=== PATIENT | female | born 1980 | race Caucasian/White ===

== ENCOUNTER 2016-12-31 13:21 | Inpatient (IN) | payer BC ==
[2016-12-31] MEDS ORDERED: OXYTOCIN 10 UNIT/ML 1 ML VIAL IM PRN ×2 (14:48→16:59)
[2016-12-31] MEDS ORDERED: METHYLERGONOVINE 0.2 MG/ML 1 ML AMP IM PRN (14:48)
[2016-12-31] MEDS ORDERED: TERBUTALINE 1 MG/ML VIAL SQ PRN ×2 (14:48→16:59)
[2016-12-31] MEDS ORDERED: CARBOPROST TROMETHAMINE 250 MCG/ML 1 ML AMP IM PRN (14:48)
[2016-12-31] MEDS ORDERED: LIDOCAINE 1% (PF) 10 MG/ML (30 ML SDV) SQ PRN ×2 (14:48→16:59)
[2016-12-31] MEDS ORDERED: LACTATED RINGERS 1,000 ML IV SCH (15:00)
[2016-12-31 15:04] LABS: Appearance,Urine Clear (Clear); Bilirubin,Urine Negative (Negative); Glucose,Urine (UA) Negative (Negative); Ketones,Urine Negative (Negative); Leukocyte Esterase,Urine Negative (Negative); Nitrite,Urine Negative (Negative); Protein,Urine Negative (Negative); Specific Gravity,Urine 1.008 (1.001-1.035); UA Billing (MACRO vs. MICRO) CHEM; Urobilinogen,Urine <2.0 mg/dL (<2.0)
[2016-12-31 15:29] LABS: Basophils % (A) 0 %; CH 33.6; CHCM 34.5; Eosinophils # (A) 0.1 k/uL (0-0.7); Eosinophils % (A) 0 %; HCT 37.7 % (34.0-46.0); HDW 2.41; HGB 12.6 gm/dL (11.4-16.0); Luc # (Auto) 0.19; Luc % (Auto) 1; Lymphocytes % (A) 12 %; MCH 32.6 pg (25.0-35.0); MCHC 33.3 g/dL (31.0-37.0); Mean Platelet Volume 7.8; Monocytes # (A) 0.8 k/uL (0-1.0); Monocytes % (A) 5 %; Neutrophils # (A) 13.9 k/uL (1.3-7.7); Neutrophils % (A) 82 %; RBC 3.85 m/uL (3.80-5.40); RDW 15.2 % (11.5-15.5); WBC (Perox) 17.72
[2016-12-31 15:57] LABS: Uric Acid 5.3 mg/dL (3.7-7.4)
--- NOTE | 2016-12-31 16:56 | US ---
EXAMINATION TYPE: US OB >= 14 wk fetus DATE OF EXAM: 12/31/2016 COMPARISON: EXAMINATION TYPE: US OB >= 14 wk fetus DATE OF EXAM: 12/31/2016 COMPARISON: None CLINICAL HISTORY: EFW, LORIE and position, patient thinks her water broke earlier. TECHNIQUE: Transabdominal (TA) GESTATIONAL AGE / DATING Physician Established: (40 weeks/4 days) EDC: 12/27/2016 Dates by LMP: unknown Dates by First Scan: first scan done here Dates by Current Scan: (37 weeks/4 days) EDC: 01/17/2017 SURVEY IUP: Single PLACENTA: Fundal PREVIA: No Previa LORIE: 5.4 cm Oligohydramnios, pt thinks her water broke earlier today CERVICAL LENGTH (transabdominal: norm > 3.0cm): 3.2 cm BIOMETRY PRESENTATION: Vertex LIE: Longitudinal BPD: 9.4 cm 38 weeks / 2 days HC: 33.9 cm 37 weeks / 3 days AC: 33.6 cm 37 weeks / 3 days FL: 7.3 cm 37 weeks / 3 days ESTIMATED WEIGHT IN GRAMS: 3294 grams ESTIMATED WEIGHT IN LBS/OZS: 7 lbs. 4 oz. WEIGHT PERCENTAGE BASED ON ESTABLISHED DATES: 18.5% HC/AC: not available FL/AC: 21.8 20.0-24.0 HEART RATE: 137 bpm RHYTHM: Normal MATERNAL WALL MEASUREMENT: 4.1 cm from skin to anterior uterine wall (if exam limited due to body hab itus). Heart rate is 137 bpm. IMPRESSION: Cervical length is 3.2 cm. measurements vary in gestational age between 37 weeks 3 days and 38 weeks and 2 days.
--- NOTE | 2016-12-31 16:59 | P.HPOB ---
History of Present Illness H&P Date: 12/31/16 Chief Complaint: Rupture of membranes, contractions Cassidy is a very pleasant 36-year-old 1 para 0 at 8-4/7 days with estimated due date of 12/27/2016. She states she had a large gush of fluid around 9:30 AM today and then continued to fill minipads thereafter. She started maldonado and then presented to OB triage. She denies vaginal bleeding and notes good movement blood work revealed a blood type of AB+ she was rubella immune her RPR was nonreactive her hepatitis B surface antigen was negative her HIV was negative. She is a known gestational diabetic and has been well controlled. Review of Systems Respiratory: Denies cough Gastrointestinal: Denies constipation, Denies diarrhea Past Medical History Additional Past Medical History / Comment(s): Gestational Diabetes 10/04 History of Any Multi-Drug Resistant Organisms: None Reported Past Surgical History: Cholecystectomy, Tonsillectomy Additional Past Anesthesia/Blood Transfusion Reaction / Comment(s): tongue swelled with tonsilectomy requiring steroids Smoking Status: Never smoker Medications and Allergies Home Medications Medication Instructions Recorded Confirmed Type 78/Iron/Folate 1/Dha 1 each PO DAILY 12/31/16 12/31/16 History [Prenate Dha Softgel] valACYclovir [Valtrex] 500 mg PO DAILY 12/31/16 12/31/16 History Allergies Allergy/AdvReac Type Severity Reaction Status Date / Time Sulfa (Sulfonamide Allergy Rash/Hives Verified 12/31/16 14:10 Antibiotics) Exam Osteopathic Statement: *. No significant issues noted on an osteopathic structural exam other than those noted in the History and Physical/Consult. - Vital Signs Vital signs: Intake and Output 12/31/16 12/31/16 12/31/16 06:59 14:59 22:59 Other: Weight 117.934 kg Patient Weight 01/01/17 06:59 Weight 117.934 kg - OBG Physical Exam Abdomen: Gravid Cervix: 2-3 cm/ 50/-3, amnisure was indeterminate for ROM on admission per RN Uterus: Appropriate for gestational age Uterus: enlarged Results Result Diagrams: 12/31/16 15:15 Abnormal Lab Results - Last 24 Hours (Table) 12/31/16 12/31/16 Range/Units 15:15 15:15 WBC 17.0 H (3.8-10.6) k/uL Neutrophils # 13.9 H (1.3-7.7) k/uL Lactate Dehydrogenase 746 H (313-618) U/L Assessment and Plan (1) SROM (spontaneous rupture of membranes) Status: Acute (2) Gestational HTN Narrative/Plan: PIH labs were drawn all negative in nature, negative urine protein on UA. We will monitor blood pressures closely Status: Acute (3) HSV (herpes simplex virus) anogenital infection Narrative/Plan: Will continue Valtrex Status: Acute (4) AMA (advanced maternal age) primigravida 35+ Status: Acute (5) GDM, class A1 Status: Acute Plan: We'll admit to labor and delivery for expectant management. Blood pressures were initially elevated but have come down to more normal range, 130s to 140s over 80s. She is without complaints of headache visual changes or abdominal pain at this time. PIH labs were completed all normal in nature with negative protein in her urine. We will watch blood pressures closely. Patient is noting an increase in contractions and anticipate spontaneous vaginal delivery.
[2016-12-31 19:46] VITALS: BMI 37.3
[2016-12-31] MEDS: LACTATED RINGERS 1,000 ML IV SCH (20:39)
[2016-12-31 20:41] LABS: Non-African American GFR(MDRD) >60 (>60 ml/min/1.73 sqM)
[2016-12-31 20:44] LABS: Glucose,Whole Blood 73 mg/dL (75-99)
[2016-12-31 22:16] LABS: Basophils % (A) 0 %; CH 32.6; CHCM 33.8; Eosinophils # (A) 0.1 k/uL (0-0.7); Eosinophils % (A) 1 %; HCT 37.6 % (34.0-46.0); HDW 2.39; HGB 12.8 gm/dL (11.4-16.0); Luc # (Auto) 0.19; Luc % (Auto) 1; Lymphocytes % (A) 13 %; MCH 33.1 pg (25.0-35.0); MCHC 34.1 g/dL (31.0-37.0); Mean Platelet Volume 7.2; Monocytes # (A) 0.6 k/uL (0-1.0); Monocytes % (A) 4 %; Neutrophils # (A) 13.1 k/uL (1.3-7.7); Neutrophils % (A) 82 %; RBC 3.87 m/uL (3.80-5.40); RDW 14.4 % (11.5-15.5); WBC (Perox) 16.49
[2016-12-31 22:36] LABS: ALT 31 U/L (9-52); AST 23 U/L (14-36); Blood Urea Nitrogen 12 mg/dL (7-17); LDH 609 U/L (313-618); Magnesium 1.6 mg/dL (1.6-2.3); Non-African American GFR(MDRD) >60 (>60 ml/min/1.73 sqM)
[2016-12-31 22:50] LABS: Prothrombin Time 9.8 sec (9.0-12.0)
[2016-12-31 22:51] LABS: Partial Thromboplastin Time 21.6 sec (22.0-30.0)
[2017-01-01] MEDS: BUTORPHANOL 1 MG/ML 1 ML VIAL IV PRN ×2 (00:59→04:41)
[2017-01-01] MEDS: LACTATED RINGERS 1,000 ML IV SCH ×5 (01:04→18:15)
[2017-01-01] MEDS ORDERED: OXYTOCIN 20 UNITS/1000 ML NS 1,000 ML IV SCH (05:00)
[2017-01-01] MEDS ORDERED: AMPICILLIN 2,000 MG in SODIUM CHLORIDE 0.9% 100 ML IVPB STA (05:37)
[2017-01-01] MEDS ORDERED: SODIUM CHLORIDE 0.9% 100 ML BAG ONE ×2 (08:28→14:17)
[2017-01-01] MEDS ORDERED: fentaNYL (PF) 50 MCG/ML 5 ML AMP ONE ×2 (08:28→14:17)
[2017-01-01] MEDS ORDERED: BUPIVACAINE (PF) 0.25% 30 ML VIAL ONE ×2 (08:28→14:17)
[2017-01-01] MEDS ORDERED: BUPIVACAINE (PF) 0.25% 25 ML, fentaNYL (PF) 200 MCG in SODIUM CHLORIDE 0.9% 71 ML EPIDURAL ONE (09:10)
[2017-01-01] MEDS: AMPICILLIN 1,000 MG in SODIUM CHLORIDE 0.9% 50 ML IVPB SCH ×2 (10:12→18:06)
[2017-01-01] MEDS ORDERED: hydrALAZINE HCL 20 MG/ML 1 ML VIAL IVP STA ×3 (11:05→12:45)
[2017-01-01 11:56] LABS: Hemoglobin A1C 5.6 % (4.2-6.1)
[2017-01-01] MEDS ORDERED: ceFAZolin 2 GM in SODIUM CHLORIDE 0.9% 100 ML IVPB ONE (14:02)
[2017-01-01] MEDS ORDERED: CITRIC ACID-SODIUM CITRATE 15 ML CUP PO ONE (14:02)
[2017-01-01] MEDS ORDERED: ONDANSETRON 4 MG/2 ML VIAL ONE (14:17)
[2017-01-01] MEDS ORDERED: OXYTOCIN 10 UNIT/ML 1 ML VIAL ONE (14:17)
[2017-01-01] MEDS ORDERED: KETOROLAC 30 MG/ML 1 ML VIAL ONE (14:17)
[2017-01-01] MEDS ORDERED: diphenhydrAMINE 50 MG CAP PO PRN (15:23)
[2017-01-01] MEDS ORDERED: HYDROmorphone PCA 5 MG/25 ML SYRINGE IV PRN (15:23)
[2017-01-01] MEDS ORDERED: ONDANSETRON 4 MG/2 ML VIAL IVP PRN (15:23)
[2017-01-01] MEDS ORDERED: diphenhydrAMINE 50 MG/ML 1 ML VIAL IVP PRN ×2 (15:23)
[2017-01-01] MEDS ORDERED: METOCLOPRAMIDE 5 MG/ML 2 ML VIAL IVP PRN (15:23)
[2017-01-01] MEDS ORDERED: ZOLPIDEM 5 MG TAB PO PRN (15:23)
[2017-01-01] MEDS ORDERED: NALOXONE 0.4 MG/ML 1 ML VIAL IV PRN (15:23)
[2017-01-01] MEDS ORDERED: diphenhydrAMINE 25 MG CAP PO PRN (15:23)
--- NOTE | 2017-01-01 15:23 | P.OP ---
Date of Procedure: 01/01/17 Preoperative Diagnosis: Arrest of descent at 40-4/7 weeks' gestation, gestational diabetes. Postoperative Diagnosis: Left occiput posterior position, fibroid uterus. Procedure(s) Performed: primary low transverse section Implants: Anesthesia: epidural Surgeon: Janet Marquez Receiver Setter #1: aDnyell Casiano Estimated Blood Loss (ml): 600 IV fluids (ml): 1,000 Urine output (ml): 100 Pathology: other (Placenta) Condition: stable Disposition: PACU Indications for Procedure: Operative Findings: Description of Procedure: After almost 2 hours of pushing in the second stage of labor, no descent was noted. Patient declared that she was done pushing and requested . Station remained at 0 to +1 with a large amount of . heart tones were reassuring. She was brought to the operating room where the epidural that was previously placed was "topped off". Analgesia was noted to be adequate. Irene was placed to direct drainage. 2 g of Ancef were given. The abdomen was prepped and draped in the usual sterile fashion. Analgesia was checked and noted to be very good. Therefore low transverse skin incision was made in this is carried down through the subcutaneous tissue. Fascia is isolated, scored and extended bilaterally with curved Villalba scissors. Peritoneum is next identified and incised, there is no bowel or bladder involvement. The bladder blade was placed over the dome of the bladder to avoid bladder and/or ureteral injury. It is well mobilized from the operative field. A low transverse uterine incision is made in this is carried down through the myometrium. Endometrial cavity is entered, and the incision is extended bluntly. The 's head is very deep into the pelvis. It is gently brought into the operative field and noted to be in the left occiput posterior position. There is a large amount of Noted. The oropharynx, nasopharynx and external nares are bulb suctioned. Patient is officially delivered of a liveborn male infant at 1433 hrs. Umbilical cord is doubly clamped and ligated he should where scores of 8 and 9 at one and 5 minutes respectively are given. Placentas delivered manually, it is inspected and noted to be intact with trivascular cord at 1434 hrs. At this time the uterus is externalized. The incision is grasped with Leach clamps. The uterus is swept clean with a sterile sponge to avoid any retained products of conception. The uterus is closed in a running stitch of 0 Vicryl. A second layer of 0 Vicryl is placed in an imbricated fashion for excellent reapproximation. Bilateral ovaries and tubes are inspected and noted to be normal. There is a subcu mucosal fibroid noted that is approximate 5 cm in diameter. The abdomen is suctioned with suction on guard. The uterus is gently placed back into the abdominal cavity. Bilateral gutters are inspected and cleaned. The uterine incision is noted to be nicely intact and well approximated. The peritoneum was allowed to close by secondary intention. Fascia is closed in a running fashion using 0 Vicryl with over ligation in the midline. Subcutaneous tissue is irrigated, noted to be clean and dry. It is reapproximated with 3-0 Vicryl in a running stitch. 4-0 undyed Vicryl issues for final skin closure. Steri-Strips and Mastisol are applied to the wound. Patient is brought back to the recovery room in very good condition with stable vital signs, including a blood pressure of 134/77, pulse 98, 98% O2 saturation. Estimated blood loss 600 mL's. Infant weighed 7 lbs. 14 oz. or 3586 g. All sponge needle and enhancement counts are correct at the end of procedure. Patient is requesting circumcision for her son.
[2017-01-01] MEDS: SENNOSIDES-DOCUSATE SODIUM 1 EACH TAB PO SCH (20:54)
[2017-01-01] MEDS: KETOROLAC 30 MG/ML 1 ML VIAL IVP PRN (20:57)
[2017-01-02] MEDS: LACTATED RINGERS 1,000 ML IV SCH ×2 (01:26→10:10)
[2017-01-02] MEDS: KETOROLAC 30 MG/ML 1 ML VIAL IVP PRN ×2 (04:18→10:17)
[2017-01-02] MEDS: SENNOSIDES-DOCUSATE SODIUM 1 EACH TAB PO SCH ×2 (08:23→23:33)
--- NOTE | 2017-01-02 08:46 | P.PN ---
Subjective Principal diagnosis: Postoperative day #1 Slept well, passing gas. Hungry. No complaints Objective - Vital Signs Vital signs: Vital Signs Temp 99.4 F 01/02/17 04:00 Pulse 102 H 01/02/17 04:00 Resp 16 01/02/17 04:00 BP 132/79 01/02/17 04:00 Pulse Ox 98 01/02/17 04:00 Intake & Output 01/01/17 01/02/17 01/02/17 18:59 06:59 18:59 Intake Total 1825 Output Total 50 700 Balance -50 1125 Intake: Intake, IV Titration 625 Amount Lactated Ringers 1,000 ml 625 @ 125 mls/hr IV .Q8H ROSALIND Rx#:[id number] Oral 1200 Output: Urine 50 700 Uretheral (Irene) 100 Other: Voiding Method Indwelling Catheter # Voids 1 1 - Constitutional General appearance: Present: average body habitus, cooperative - EENT Eyes: Present: PERRLA ENT: Present: hearing grossly normal - Neck Neck: Present: normal ROM Thyroid: bilateral: normal size - Respiratory Respiratory: bilateral: CTA - Cardiovascular Rhythm: regular - Gastrointestinal Gastrointestinal Comment(s): Incision clean and dry, well approximated, Steri-Strips applied. Fundus firm, midline, symmetric, 18 week size, nontender. - Integumentary Integumentary: Present: normal, normal turgor - Neurologic Neurologic: Present: CNII-XII intact - Musculoskeletal Musculoskeletal: Present: gait normal - Psychiatric Psychiatric: Present: A&O x's 3, appropriate affect, intact judgment & insight - Labs CBC & Chem 7: 12/31/16 22:03 12/31/16 22:03 Assessment and Plan Plan: Continue postoperative care. Circumcision this morning. Likely discharge home tomorrow. Time with Patient: Less than 30
[2017-01-02 09:17] LABS: Basophils % (A) 0 %; CH 33.2; Eosinophils # (A) 0.1 k/uL (0-0.7); Eosinophils % (A) 0 %; HCT 31.1 % (34.0-46.0); HDW 2.42; HGB 10.3 gm/dL (11.4-16.0); Luc # (Auto) 0.16; Luc % (Auto) 1; Lymphocytes # (A) 1.9 k/uL (1.0-4.8); Lymphocytes % (A) 10 %; MCH 32.5 pg (25.0-35.0); MCV 98.5 fL (80.0-100.0); Macrocytosis Slight; Mean Platelet Volume 7.5; Monocytes # (A) 0.6 k/uL (0-1.0); Monocytes % (A) 3 %; Neutrophils # (A) 16.1 k/uL (1.3-7.7); Neutrophils % (A) 85 %; RBC 3.16 m/uL (3.80-5.40); RDW 15.2 % (11.5-15.5); WBC 18.8 k/uL (3.8-10.6); WBC (Perox) 18.76
[2017-01-02] MEDS ORDERED: DIPH,PERTUS(ACELL)TETVAC-LF 0.5 ML VIAL IM ONE (10:05)
[2017-01-02] MEDS: ACETAMINOPHEN TAB 325 MG TAB PO PRN (14:36)
[2017-01-02] MEDS: IBUPROFEN 600 MG TAB PO PRN ×2 (18:02→23:32)
[2017-01-03] MEDS: IBUPROFEN 600 MG TAB PO PRN ×2 (07:56→14:54)
--- NOTE | 2017-01-03 08:00 | P.DS ---
Providers Date of admission: 12/31/16 14:34 Expected date of discharge: 01/03/17 Attending physician: Janet [facility] Course: This is a 26-year-old white female 1 para 0 EDC 12/27/2016 at 40-5/7 weeks' gestation. Patient was admitted in early labor. Her was essentially unremarkable, group B strep cultures negative, rubella status immune. Please see my dictated history and physical for details. Patient ultimately underwent a low-transverse section for arrest of dilatation and descent. She did well intraoperatively, and gave to a liveborn male with scores of 8 and 9 at one and 5 minutes respectively. Infant weighed 7 lbs. 14 oz. or 3586 g. He was in the occiput posterior position, please see my dictated operative note for details. This morning the patient is doing well. She is voiding, ambulating and passing flatus without difficulty. Vital signs are stable and she is afebrile. Incision is clean and dry, intact, Steri-Strips applied. Fundus is firm, midline, symmetric, 18 week size. Extremities are negative for edema. Breasts are not engorged. Breast-feeding is going well. infant has been circumcised and is doing well. Patient is being discharged home today in very good condition. She is reminded no intercourse, tampons or douching. She has elected to use [id number] products as needed for pain, ibuprofen, 200 mg pills, 600 mg every 6 hours as needed. I have asked her to call me with any fevers shakes or chills, foul smelling or copious lochia, with the passage of large blood clots, with any pain not alleviated by [id number] products, or indeed with any concerns. She is reminded no driving, no heavy lifting, no intercourse tampons or douching. She will continue taking her vitamin daily. [place] infant will follow-up with site administrator as recommended. Patient Condition at Discharge: Good Plan - Discharge Summary New Discharge Prescriptions: No Action valACYclovir [Valtrex] 500 mg PO DAILY 78/Iron/Folate 1/Dha [Prenate Dha Softgel] 1 each PO DAILY Discharge Medication List 78/Iron/Folate 1/Dha [Prenate Dha Softgel] 1 each PO DAILY 12/31/16 [ History] valACYclovir [Valtrex] 500 mg PO DAILY 12/31/16 [History] Follow up Appointment(s)/Referral(s): Janet Marquez MD [STAFF PHYSICIAN] - 2 Weeks Discharge Disposition: HOME SELF-CARE
[2017-01-03 08:17] VITALS: BP 139/80; PULSE 110; RESP 18; TEMP 97.7
[2017-01-03] MEDS: SENNOSIDES-DOCUSATE SODIUM 1 EACH TAB PO SCH (08:17)
[2017-01-03] MEDS: ACETAMINOPHEN TAB 325 MG TAB PO PRN (12:15)
== END 2017-01-03 18:00 | disposition home or self-care (01) | DRG 766 ==
LOC: FBPOP 13:21 → 4FBP 14:34
PROVIDERS: ADMIT Obstetrics & Gynecology Obstetrics; ATTEND Obstetrics & Gynecology
PROC: 10D00Z1 Extraction of Products of Conception, Low, Open Approach (ICD-10-PCS; principal; 2017-01-01 14:25)
PROC: 3E0234Z Introduction of Serum, Toxoid and Vaccine into Muscle, Percutaneous Approach (ICD-10-PCS; 2017-01-02)
DX: O13.4 Gestational [pregnancy-induced] hypertension without significant proteinuria, complicating childbirth (principal); O24.420 Gestational diabetes mellitus in childbirth, diet controlled; A60.00 Herpesviral infection of urogenital system, unspecified; O98.319 Other infections with a predominantly sexual mode of transmission complicating pregnancy, unspecified trimester; O34.13 Maternal care for benign tumor of corpus uteri, third trimester; O62.1 Secondary uterine inertia; Z37.0 Single live birth; Z23 Encounter for immunization; Z3A.40 40 weeks gestation of pregnancy; Z90.49 Acquired absence of other specified parts of digestive tract; D25.9 Leiomyoma of uterus, unspecified; Z79.899 Other long term (current) drug therapy; Z88.2 Allergy status to sulfonamides
CPT/HCPCS: 59025; 76805; 81003; 82565; 83036; 83615; 83735; 84112; 84450; 84460; 84520; 84550; 85025; 85384; 85610; 85730; 86850; 86900; 86901; 88307; 99213

== ENCOUNTER 2017-01-07 20:41 | Emergency (ER) | payer BC ==
[2017-01-07 20:46] VITALS: BP 184/72; PULSE 117; RESP 20; TEMP 98.5
--- NOTE | 2017-01-07 21:51 | ED ---
General Adult HPI - General Chief complaint: Recheck/Abnormal Lab/Rx Stated complaint: bleeding from site Time Seen by Provider: 01/07/17 21:05 Source: patient, family, RN notes reviewed Mode of arrival: ambulatory Limitations: no limitations - History of Present Illness Initial comments: 36 yo female presents emergency department with a chief complaint of draining from her surgical incision site. Patient states she had a done on Sunday by Dr. Marquez. Patient states that all of a sudden she felt a gush and she had drainage from her incision site. Patient denies any pain. Patient denies any fever or any purulent drainage she states it is clear drainage and some blood. They were concerned so they thought they should be seen.Patient denies any recent fever, chills, shortness of breath, chest pain, back pain, abdominal pain, nausea vomiting, numbness or tingling, dysuria or hematuria, constipation or diarrhea, headaches or visual changes, or any other current symptoms. - Related Data Home Medications Medication Instructions Recorded Confirmed 78/Iron/Folate 1/Dha 1 cap PO HS 12/31/16 01/07/17 [Prenate Dha Softgel] Ibuprofen [Motrin] 200 - 600 mg PO Q6HR PRN 01/07/17 01/07/17 Allergies Allergy/AdvReac Type Severity Reaction Status Date / Time Sulfa (Sulfonamide Allergy Rash/Hives Verified 01/07/17 21:05 Antibiotics) Review of Systems ROS Statement: Those systems with pertinent positive or pertinent negative responses have been documented in the HPI. ROS Other: All systems not noted in ROS Statement are negative. Past Medical History Additional Past Medical History / Comment(s): Gestational Diabetes 10/04 History of Any Multi-Drug Resistant Organisms: None Reported Past Surgical History: Section, Cholecystectomy, Tonsillectomy Additional Past Anesthesia/Blood Transfusion Reaction / Comment(s): tongue swelled with tonsilectomy requiring steroids Past Psychological History: No Psychological Hx Reported Smoking Status: Never smoker Past Alcohol Use History: None Reported Past Drug Use History: None Reported - Past Family History Father Family Medical History: Cancer, Hypertension General Exam Limitations: no limitations General appearance: alert, in no apparent distress Neck exam: Present: normal inspection. Absent: tenderness, meningismus, lymphadenopathy Respiratory exam: Present: normal lung sounds bilaterally. Absent: respiratory distress, wheezes, rales, rhonchi, stridor Cardiovascular Exam: Present: regular rate, normal rhythm, normal heart sounds. Absent: systolic murmur, diastolic murmur, rubs, gallop, clicks GI/Abdominal exam: Present: soft, normal bowel sounds. Absent: distended, tenderness, guarding, rebound, rigid Neurological exam: Present: alert, oriented X3 Skin exam: Present: warm, dry. Absent: intact (Patient appears to have a healing incision site. There does appear to be some drainage non- purulent clear with some blood tinging. No sign of erythema surrounding the area. Is able to elicit more fluid from the area.) Course Vital Signs 01/07/17 20:42 Temperature 98.5 F Pulse Rate 117 H Respiratory 20 Rate Blood Pressure 184/72 O2 Sat by Pulse 100 Oximetry Medical Decision Making - Medical Decision Making 36-year-old female presents emergency Department what appears to be a seroma. This time we discussed care of this. We discussed follow-up. We discussed return parameters and all questions. Patient stated that she understood and she is in agreement the plan. At this time the patient questions have been answered. She will be discharged home. Disposition Clinical Impression: Seroma Disposition: HOME SELF-CARE Condition: Stable Instructions: Wound Healing and Your Diet (ED), Acute Wound Care (ED) Additional Instructions: Please use medication as discussed. Please follow up with family doctor if symptoms have not improved over the next two days. Please return to the emergency room if your symptoms increase or worsen or for any other concerns. Referrals: Evelin Baires MD [Primary Care Provider] - 1-2 days Time of Disposition: 21:50
== END 2017-01-07 22:03 | disposition home or self-care (01) ==
LOC: EC 20:41
DX: L76.34 Postprocedural seroma of skin and subcutaneous tissue following other procedure (principal); L76.22 Postprocedural hemorrhage of skin and subcutaneous tissue following other procedure; Z79.899 Other long term (current) drug therapy; Z88.2 Allergy status to sulfonamides
CPT/HCPCS: 87070; 87077; 87186; 87205; 99283

== ENCOUNTER 2018-05-26 09:17 | Emergency (ER) | payer BC ==
[2018-05-26] MEDS ORDERED: IPRATROPIUM-ALBUTEROL 3 ML NEB INHALATION STA (09:33)
--- NOTE | 2018-05-26 09:43 | ED ---
URI HPI - General Chief Complaint: Upper Respiratory Infection Stated Complaint: cough Time Seen by Provider: 05/26/18 09:23 Source: patient, RN notes reviewed Mode of arrival: ambulatory Limitations: no limitations - History of Present Illness Initial Comments: 37-year-old female presents emergency Department from [facility] chief complaint cough congestion. Patient states she has been sick for one month. Patient states that she has been on doxycycline, another antibiotic. Patient states she had 2 short course of steroids. Patient states that they were Medrol Dosepak. Patient states that she has no significant lung disease including asthma, COPD. Patient is a nonsmoker. 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 Patient denies any chest pain. Patient has never been seen by a salesperson flowers. She states her cough is productive of phlegm at times. Patient denies ear pain, sore throat, headache or dizziness. Patient does notice wheezing at home worse with activity - Related Data Home Medications Medication Instructions Recorded Confirmed 78/Iron/Folate 1/Dha 1 cap PO HS 12/31/16 05/26/18 [Prenate Dha Softgel] Norethindrone [Nadira] 0.35 mg PO W/SUPPER 05/26/18 05/26/18 Previous Rx's Medication Instructions Recorded Albuterol Nebulized [Ventolin 2.5 mg INHALATION Q4H PRN #25 nebu 05/26/18 Nebulized] Budesonide/Formoterol Fumarate 1 puff INHALATION BID #1 inhaler 05/26/18 [Symbicort 80-4.5 Mcg Inhaler] predniSONE 10 mg PO DIRECTED #30 tab 05/26/18 Allergies Allergy/AdvReac Type Severity Reaction Status Date / Time Sulfa (Sulfonamide Allergy Rash/Hives Verified 05/26/18 09:49 Antibiotics) Review of Systems ROS Statement: Those systems with pertinent positive or pertinent negative responses have been documented in the HPI. ROS Other: All systems not noted in ROS Statement are negative. Past Medical History Additional Past Medical History / Comment(s): Gestational Diabetes 10/04 History of Any Multi-Drug Resistant Organisms: None Reported Past Surgical History: Section, Cholecystectomy, Tonsillectomy Additional Past Anesthesia/Blood Transfusion Reaction / Comment(s): tongue swelled with tonsilectomy requiring steroids Past Psychological History: No Psychological Hx Reported Smoking Status: Never smoker Past Alcohol Use History: None Reported Past Drug Use History: None Reported - Past Family History Father Family Medical History: Cancer, Hypertension General Exam Limitations: no limitations General appearance: alert, in no apparent distress Head exam: Present: atraumatic, normocephalic, normal inspection Eye exam: Present: normal appearance, PERRL, EOMI. Absent: scleral icterus, conjunctival injection, periorbital swelling ENT exam: Present: normal exam, normal oropharynx, mucous membranes moist, TM's normal bilaterally, normal external ear exam Neck exam: Present: normal inspection, full ROM. Absent: tenderness, meningismus, lymphadenopathy Respiratory exam: Present: wheezes (Bilateral throughout, audible wheeze). Absent: normal lung sounds bilaterally, respiratory distress, rales, rhonchi, stridor Cardiovascular Exam: Present: normal rhythm, tachycardia, normal heart sounds. Absent: systolic murmur, diastolic murmur, rubs, gallop, clicks Skin exam: Present: warm, dry, intact, normal color. Absent: rash Course Vital Signs 05/26/18 05/26/18 05/26/18 09:19 09:45 10:05 Temperature 98.8 F Pulse Rate 112 H 108 H 112 H Respiratory 20 Rate Blood Pressure 141/89 O2 Sat by Pulse 100 Oximetry Medical Decision Making - Medical Decision Making 37-year-old female presented from for cough congestion which has been present for 1 month. Chest x-ray is unremarkable. Patient has notable wheezing, bronchospasm. Patient does respond with DuoNeb treatment. Patient will be given steroid taper over 12 days, continuation of inhaler and inhaled steroid. Patient will also given prescription and for nebulizer and albuterol. Patient will follow-up with Dr. Stanford on-call salesperson flowers and return for any worsening symptoms. Disposition Clinical Impression: Bronchitis with bronchospasm, Chronic cough Disposition: HOME SELF-CARE Condition: Stable Instructions: Bronchospasm (ED) Additional Instructions: Please return to the Emergency Department if symptoms worsen or any other concerns. Prescriptions: Albuterol Nebulized [Ventolin Nebulized] 2.5 mg INHALATION Q4H PRN #25 nebu PRN Reason: difficulty in breathing Budesonide/Formoterol Fumarate [Symbicort 80-4.5 Mcg Inhaler] 1 puff INHALATION BID #1 inhaler predniSONE 10 mg PO DIRECTED #30 tab Is patient prescribed a controlled substance at d/c from ED?: No Referrals: Evelin Baires MD [Primary Care Provider] - 1-2 days Boy Canales MD [STAFF PHYSICIAN] - 1-2 days Time of Disposition: 11:26
--- NOTE | 2018-05-26 09:46 | XR ---
EXAMINATION TYPE: XR chest 2V DATE OF EXAM ORDERED: 05/26/2018 HISTORY: Cough/pain. REFERENCE: None. FINDINGS: The lungs are clear. Pleural spaces are clear. Heart size is normal. IMPRESSION: NORMAL CHEST.
[2018-05-26 15:23] VITALS: BP 122/89; PULSE 102; RESP 18; TEMP 98.2
== END 2018-05-26 11:42 | disposition home or self-care (01) ==
LOC: EC 09:17
DX: J40 Bronchitis, not specified as acute or chronic (principal); J98.01 Acute bronchospasm; R05 Cough; Z79.3 Long term (current) use of hormonal contraceptives
CPT/HCPCS: 71046; 94640; 99283

== ENCOUNTER → 2018-12-05 | Outpatient (CLI) | payer BC ==
--- NOTE | 2018-12-05 13:48 | MM ---
Reason for exam: screening (asymptomatic). Baseline mammogram. History: Patient had first child at age 36. Family history of breast cancer in mother at age 47 and breast cancer in maternal grandmother at age 60. Taking hormonal contraceptives for 6 months beginning at age 38. Physical Findings: Nurse did not find any significant physical abnormalities on exam. MG 3D Screening Mammo W/Cad Bilateral CC and MLO view(s) were taken. The breast tissue is heterogeneously dense. This may lower the sensitivity of mammography. There is no discrete abnormality. These results were verbally communicated with the patient and result sheet given to the patient on 12/05/18. ASSESSMENT: Negative, BI-RAD 1 RECOMMENDATION: Routine screening mammogram of both breasts in 1 year.
== END | disposition home or self-care (01) ==
LOC: RADMAMWWP 12:45
PROVIDERS: ATTEND Obstetrics & Gynecology
DX: Z12.31 Encounter for screening mammogram for malignant neoplasm of breast (principal); Z80.3 Family history of malignant neoplasm of breast
CPT/HCPCS: 77063; 77067

== ENCOUNTER → 2020-01-09 | Outpatient (CLI) | payer BC ==
--- NOTE | 2020-01-13 08:14 | MM ---
Reason for exam: screening (asymptomatic). Last mammogram was performed 1 year and 1 month ago. History: Patient had first child at age 36. Family history of breast cancer in mother at age 47 and breast cancer in maternal grandmother at age 60. Taking hormonal contraceptives for 6 months beginning at age 38. Physical Findings: A clinical breast exam by your physician is recommended on an annual basis and results should be correlated with mammographic findings. MG 3D Screening Mammo W/Cad Bilateral CC and MLO view(s) were taken. Prior study comparison: December 05, 2018, bilateral MG 3d screening mammo w/cad. The breast tissue is heterogeneously dense. This may lower the sensitivity of mammography. Left MLO posterior asymmetric density centrally disperses on 3D images. No significant changes when compared with prior studies. ASSESSMENT: Benign, BI-RAD 2 RECOMMENDATION: Routine screening mammogram of both breasts in 1 year.
== END | disposition home or self-care (01) ==
LOC: RADMAMWWP 11:46
PROVIDERS: ATTEND Obstetrics & Gynecology
DX: Z08 Encounter for follow-up examination after completed treatment for malignant neoplasm (principal); Z80.3 Family history of malignant neoplasm of breast
CPT/HCPCS: 77063; 77067

== ENCOUNTER → 2021-01-27 | Outpatient (CLI) | payer BC ==
--- NOTE | 2021-01-28 13:00 | MM ---
Reason for exam: screening (asymptomatic). Last mammogram was performed 1 year and 1 month ago. History: Patient had first child at age 36. Family history of breast cancer in mother at age 47 and breast cancer in maternal grandmother at age 60. Taking hormonal contraceptives for 4 years beginning at age 38. Physical Findings: A clinical breast exam by your physician is recommended on an annual basis and results should be correlated with mammographic findings. MG 3D Screening Mammo W/Cad Bilateral CC, MLO, and XCCL view(s) were taken. Prior study comparison: January 09, 2020, bilateral MG 3d screening mammo w/cad. December 05, 2018, bilateral MG 3d screening mammo w/cad. The breast tissue is heterogeneously dense. This may lower the sensitivity of mammography. There is no discrete abnormality. No significant changes when compared with prior studies. ASSESSMENT: Negative, BI-RAD 1 RECOMMENDATION: Routine screening mammogram of both breasts in 1 year.
== END | disposition home or self-care (01) ==
LOC: RADMAMWWP 16:13
PROVIDERS: ATTEND Obstetrics & Gynecology
DX: Z12.31 Encounter for screening mammogram for malignant neoplasm of breast (principal); Z80.3 Family history of malignant neoplasm of breast; Z79.3 Long term (current) use of hormonal contraceptives
CPT/HCPCS: 77063; 77067

== ENCOUNTER → 2022-02-06 | Outpatient (CLI) | payer BC ==
--- NOTE | 2022-02-07 09:29 | MM ---
Reason for Exam: Screening (asymptomatic). Last screening mammogram was performed 12 month(s) ago. Patient History: Menarche at age 9. First Full-Term at age 36. Late child-bearing (after 30). Currently using Hormonal Contraceptives, starting at age 38. Maternal grandmother had breast cancer, age 60. Mother had breast cancer, age 47. Risk Values: Sola 5 year model risk: 1.6%. NCI Lifetime model risk: 20.4%. Prior Study Comparison: 12/05/2018 Bilateral Screening Mammogram, [facility]. 01/09/2020 Bilateral Screening Mammogram, [facility]. 01/27/2021 Bilateral Screening Mammogram, [facility]. Tissue Density: The breast tissue is heterogeneously dense. This may lower the sensitivity of mammography. Findings: Analyzed By CAD. There is no suspicious group of microcalcifications or new suspicious mass in either breast. No significant change from prior exams. Overall Assessment: Negative, BI-RAD 1 Management: Screening Mammogram of both breasts in 1 year. A clinical breast exam by your physician is recommended on an annual basis and results should be correlated with mammographic findings. Electronically signed and approved by: Ruy Tapia D.O.
== END | disposition home or self-care (01) ==
LOC: RADMAMWWP 16:48
PROVIDERS: ATTEND Obstetrics & Gynecology
DX: Z80.3 Family history of malignant neoplasm of breast (principal); Z12.31 Encounter for screening mammogram for malignant neoplasm of breast
CPT/HCPCS: 77063; 77067

== ENCOUNTER → 2023-05-02 | Outpatient (CLI) | payer BC ==
--- NOTE | 2023-05-03 09:39 | MM ---
Reason for Exam: Screening (asymptomatic). Last mammogram was performed 1 year(s) and 3 month(s) ago. Patient History: Menarche at age 9. First Full-Term at age 36. Late child-bearing (after 30). Currently using Hormonal Contraceptives, starting at age 38. Maternal grandmother had breast cancer, age 60. Mother had breast cancer, age 47. Last menstrual period: 04/23/2023 Risk Values: Sola 5 year model risk: 1.7%. NCI Lifetime model risk: 20.2%. Prior Study Comparison: 01/09/2020 Bilateral Screening Mammogram, [facility]. 01/27/2021 Bilateral Screening Mammogram, [facility]. 02/06/2022 Bilateral MG 3D screening mammo w/cad, [facility]. Tissue Density: The breast tissue is heterogeneously dense. This may lower the sensitivity of mammography. Findings: Analyzed By CAD. There is no suspicious group of microcalcifications or new suspicious mass. Overall Assessment: Negative, BI-RAD 1 Management: Screening Mammogram of both breasts in [address] [facility] will attempt to contact patient to return for supplemental views and ultrasound if indicated. Patient should continue monthly self-breast exams. A clinical breast exam by your physician is recommended on an annual basis. This exam should not preclude additional follow-up of suspicious palpable abnormalities. Note on Sola scores and lifetime risk: 1. A Sola score greater than 3% is considered moderate risk. If this is the case, consider specialist referral to assess eligibility for a risk reducing agent. 2. If overall lifetime risk for the development of breast cancer is 20% or higher, the patient may qualify for future screening with alternating mammogram and breast MRI. Electronically signed and approved by: Teofilo Murray DO
== END | disposition home or self-care (01) ==
LOC: RADMAMWWP 07:08
PROVIDERS: ATTEND Obstetrics & Gynecology
DX: Z12.31 Encounter for screening mammogram for malignant neoplasm of breast (principal); Z80.3 Family history of malignant neoplasm of breast
CPT/HCPCS: 77063; 77067

== ENCOUNTER → 2024-05-29 | Outpatient (CLI) | payer BC ==
--- NOTE | 2024-05-29 08:52 | MM ---
Reason for Exam: Screening (asymptomatic). Last mammogram was performed 1 year(s) and 1 month(s) ago. Patient History: Menarche at age 9. First Full-Term at age 36. Late child-bearing (after 30). Currently using Hormonal Contraceptives, starting at age 38. Maternal grandmother had breast cancer, age 60. Mother had breast cancer, age 47. Risk Values: Sola 5 year model risk: 1.8%. NCI Lifetime model risk: 20.1%. Prior Study Comparison: 01/27/2021 Bilateral Screening Mammogram, [facility]. 02/06/2022 Bilateral MG 3D screening mammo w/cad, [facility]. 05/02/2023 Bilateral MG 3D screening mammo w/cad, [facility]. Tissue Density: The breasts are heterogeneously dense, which may obscure small masses. Findings: Analyzed By CAD. Right breast: There is no suspicious group of microcalcifications or new suspicious mass. Left breast: Asymmetry left breast MLO view 6.2 cm nipple measuring 12 mm. Overall Assessment: Incomplete: need additional imaging evaluation, BI-RAD 0 Management: Diagnostic Mammogram of the left breast. [facility] will attempt to contact patient to return for supplemental views and ultrasound if indicated. Patient should continue monthly self-breast exams. A clinical breast exam by your physician is recommended on an annual basis. This exam should not preclude additional follow-up of suspicious palpable abnormalities. Note on Sola scores and lifetime risk: 1. A Sola score greater than 3% is considered moderate risk. If this is the case, consider specialist referral to assess eligibility for a risk reducing agent. 2. If overall lifetime risk for the development of breast cancer is 20% or higher, the patient may qualify for future screening with alternating mammogram and breast MRI. [facility], , 05/29/2024 8:48 AM. Electronically signed and approved by: Teofilo Murray DO
== END | disposition home or self-care (01) ==
LOC: RADMAMWWP 07:43
PROVIDERS: ATTEND Obstetrics & Gynecology
DX: Z12.31 Encounter for screening mammogram for malignant neoplasm of breast (principal); R92.333 Mammographic heterogeneous density, bilateral breasts; Z80.3 Family history of malignant neoplasm of breast
CPT/HCPCS: 77063; 77067

== ENCOUNTER → 2024-06-04 | Outpatient (CLI) | payer BC ==
--- NOTE | 2024-06-04 10:56 | MM ---
Reason for Exam: Additional evaluation requested from abnormal screening. Last screening mammogram was performed less than 1 month ago. Patient History: Menarche at age 9. First Full-Term at age 36. Late child-bearing (after 30). Currently using Hormonal Contraceptives, starting at age 38. Maternal grandmother had breast cancer, age 60. Mother had breast cancer, age 47. Risk Values: Sola 5 year model risk: 1.8%. NCI Lifetime model risk: 20.1%. Prior Study Comparison: 02/06/2022 Bilateral MG 3D screening mammo w/cad, [facility]. 05/02/2023 Bilateral MG 3D screening mammo w/cad, [facility]. 05/29/2024 Bilateral MG 3D screening mammo w/cad, [facility]. Tissue Density: Left: The breasts are heterogeneously dense, which may obscure small masses. Findings: Analyzed By CAD. No distinct new suspicious mass persists on additional views. Overall Assessment: Negative, BI-RAD 1 Management: Screening Mammogram of both breasts in 1 year. Return to routine follow-up. Results were given to the patient verbally at the time of exam. Patient should continue monthly self-breast exams. A clinical breast exam by your physician is recommended on an annual basis. This exam should not preclude additional follow-up of suspicious palpable abnormalities. Note on Sola scores and lifetime risk: 1. A Sola score greater than 3% is considered moderate risk. If this is the case, consider specialist referral to assess eligibility for a risk reducing agent. 2. If overall lifetime risk for the development of breast cancer is 20% or higher, the patient may qualify for future screening with alternating mammogram and breast MRI. [facility], , 06/04/2024 10:53 AM. Electronically signed and approved by: Woody Scott M.D.
== END | disposition home or self-care (01) ==
LOC: RADMAMWWP 10:19
PROVIDERS: ATTEND Obstetrics & Gynecology
DX: R92.8 Other abnormal and inconclusive findings on diagnostic imaging of breast (principal); Z80.3 Family history of malignant neoplasm of breast; R92.332 Mammographic heterogeneous density, left breast
CPT/HCPCS: 77061; 77065